=== PATIENT | male | born 2000 | race Two or more races ===

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

== ENCOUNTER 2023-10-24 19:26 | Emergency (ER) | payer OTHER ==
[~2023-10-24] VITALS: Ht 188 cm; Wt 113.4 kg
[~2023-10-24 19:26] MED LIST: CLOT10TR PO; LIDO20SO13 MM
[2023-10-24] MEDS ORDERED: LIDOCAINE HCL/MPF 1% 30 ML VIAL IJ ONE (19:53)
[2023-10-24] MEDS: LIDOCAINE HCL/PF 1% 30 ML VIAL TP ONE (20:03)
[2023-10-24] MEDS ORDERED: CEPH500C2 PO (20:18)
[2023-10-24 20:33] VITALS: BP 122/84; TEMP 98.6; O2SAT 98
== END 2023-10-24 20:33 | disposition home or self-care (01) ==
LOC: ER 19:28
DX: L02.512 Cutaneous abscess of left hand (principal); F17.200 Nicotine dependence, unspecified, uncomplicated
CPT/HCPCS: 99284; 10060; J3490 ×2

== ENCOUNTER 2024-09-21 20:39 | Emergency (ER) | payer OTHER ==
[~2024-09-21] VITALS: Ht 188 cm; Wt 108.9 kg
[~2024-09-21 20:39] MED LIST changes: +CEPH500C2 PO
[2024-09-21 21:25] VITALS: BP 145/90; TEMP 100.7
[2024-09-21] MEDS ORDERED: AMOX/CLAVULANATE 875 MG TABLET ONE (21:58)
[2024-09-21] MEDS ORDERED: dexaMETHasone SOD PHOSPHATE 1 ML ONE (21:58)
[2024-09-21] MEDS ORDERED: AMOX-430 PO (22:00)
[2024-09-21] MEDS: dexaMETHasone SOD PHOSPHATE 10 MG/ML VIAL IM ONE (22:05)
[2024-09-21] MEDS: AMOX/CLAVULANATE 875 MG TABLET PO ONE (22:05)
[2024-09-21 22:06] VITALS: O2SAT 98
== END 2024-09-21 22:12 | disposition home or self-care (01) ==
LOC: ER 20:55
DX: J02.9 Acute pharyngitis, unspecified (principal); F17.200 Nicotine dependence, unspecified, uncomplicated; Z79.899 Other long term (current) drug therapy
CPT/HCPCS: 99283; 96372; J1100